=== PATIENT | female | born 1950 | race Caucasian/White ===

== ENCOUNTER 2017-12-31 04:56 | Inpatient (IN) | payer OTHER ==
[2017-11-26 10:14] VITALS: BMI 33.0
--- NOTE | 2017-11-26 10:46 | PAT Medication Instructions ---
Service Date Nov 26, 2017. Current Home Medication List Albuterol Hfa (Ventolin Hfa), 2-4 PUFFS INH Q6H PRN for SOB/Wheezing Aspirin (Aspirin Ec), 81 MG PO QAM Cholecalciferol (Vitamin D3), 1 CAP PO 3XWK Ezetimibe (Zetia), 10 MG PO DAILYBD Fluticasone Propionate (Flovent Hfa), 1 PUFFS INH BID Furosemide (Lasix), 20 MG PO QD PRN for fluid build up Loratadine (Loratadine), 1 TAB PO QAM Metformin Hcl (Glucophage), 850 MG PO BID Polyethylene Glycol 3350 (Miralax), 17 GM PO QAM Red Yeast Rice Extract (Gnp Red Yeast Rice), 600 MG PO TIDM Medication Instructions For Your Scheduled Surgery - Hold the following medications 2 weeks prior to surgery: Red Yeast Rice Extract (Gnp Red Yeast Rice), 600 MG PO TIDM - Hold the following medications 24 hours prior to surgery: Ezetimibe (Zetia), 10 MG PO DAILYBD - Hold the following medications the morning of surgery: Cholecalciferol (Vitamin D3), 1 CAP PO 3XWK Furosemide (Lasix), 20 MG PO QD PRN for fluid build up Loratadine (Loratadine), 1 TAB PO QAM Metformin Hcl (Glucophage), 850 MG PO BID Polyethylene Glycol 3350 (Miralax), 17 GM PO QAM - Take the following medications the morning of surgery with a sip of water: Albuterol Hfa (Ventolin Hfa), 2-4 PUFFS INH Q6H PRN for SOB/Wheezing (if needed , and bring it with you to the hospital) Aspirin (Aspirin Ec), 81 MG PO QAM Fluticasone Propionate (Flovent Hfa), 1 PUFFS INH BID - Take the following medications as scheduled the night before surgery: Albuterol Hfa (Ventolin Hfa), 2-4 PUFFS INH Q6H PRN for SOB/Wheezing (if needed) Fluticasone Propionate (Flovent Hfa), 1 PUFFS INH BID Metformin Hcl (Glucophage), 850 MG PO BID If you have any questions please call us at [phone] or [phone] or [phone]
[2017-11-26 11:21] LABS: BASO % 0.3 %; BASO ABS # 0.01 K/uL (0-0.2); EOS % 1.8 %; EOS ABS # 0.07 K/uL (0-0.5); IG# 0.01 K/uL (0.00-0.02); LYMPH % 21.1 %; LYMPH ABS # 0.83 K/uL (1.2-3.4); MEAN CELL VOLUME 89.3 fL (80-100); MEAN CORPUSCULAR HEMOGLOBIN 29.8 pg (25-34); MEAN CORPUSCULAR HGB CONC 33.3 g/dl (32-36); MEAN PLATELET VOLUME 8.3 fL (7.4-10.4); MONO % 14.5 %; MONO ABS # 0.57 K/uL (0.11-0.59); NEUT ABS # 2.45 K/uL (1.4-6.5); PLATELET COUNT 281 K/uL (130-400); RED CELL DISTRIBUTION WIDTH SD 42.1 fL (36.4-46.3); WHITE BLOOD COUNT 3.94 K/uL (4.8-10.8)
[2017-11-26 11:32] LABS: PTT PATIENT 27.8 SECONDS (21.0-31.0)
[2017-11-26 11:58] LABS: HEMOGLOBIN A1C 5.9 % (4.5-5.6)
[2017-11-26 12:24] LABS: CALCIUM 9.1 mg/dl (8.5-10.1); CREATININE 0.89 mg/dl (0.60-1.20); POTASSIUM 4.6 mmol/L (3.5-5.1)
--- NOTE | 2017-12-27 18:59 | HISTORY & PHYSICAL EXAMINATION ---
DATE OF ADMISSION: 12/31/2017 CHIEF COMPLAINT: Bilateral knee pain. HISTORY OF PRESENT ILLNESS: This is a 67-year-old female who presents for surgical treatment of her right knee. She has a fairly long history of bilateral knee pain and discomfort. The right side is a little bit worse than the left. She has kind of put the surgery off for quite some time. She has had injections provided by my partner, Dr. Atkinson, which provided very temporary relief. This has become less successful over time. She describes global pain in her knees. The more she walks, the more it hurts. By the end of the day she is limping quite a bit. She would like to proceed with surgical treatment. PAST MEDICAL HISTORY: 1. Elevated cholesterol. 2. Sleep apnea. 3. COPD/emphysema. 4. Prediabetes, on metformin. 5. Obesity with BMI of 34. PAST SURGICAL HISTORY: Include 1. Hysterectomy. 2. Cholecystectomy. ALLERGIES: IBUPROFEN WHICH CAUSES A RASH. MEDICATIONS: Current medications include: 1. Metformin twice a day. 2. Red yeast 3 times a day. 3. Baby aspirin 81 mg. 4. Zetia. 5. Claritin. 6. Vitamin D. 7. Flovent twice a day. SOCIAL HISTORY: A 67-year-old female. She quit smoking in 2002. No recent alcohol intake. FAMILY HISTORY: Negative for diabetes, heart disease, or blood clots. REVIEW OF SYSTEMS: Negative for her neurologic problems, vascular problems, bleeding disorders. She does have diabetes but very well controlled. Hemoglobin A1c of 5.9. PHYSICAL EXAMINATION: GENERAL: Exam reveals a healthy and pleasant middle-aged female, looks to be in pretty good health. HEENT: Benign. NECK: Supple. No lymphadenopathy. LUNGS: Clear to auscultation. CARDIOVASCULAR: Heart has regular rate and rhythm. GASTROINTESTINAL: Abdomen is soft, nontender, nondistended. EXTREMITIES: Grossly neurovascularly intact except as follows: Examination of both knees reveals patient ambulates independently. Examination of the right knee reveals slight varus alignment. She has bony hypertrophy medially. She is tender over the medial joint line. Small knee effusion. Range of motion 5-125. No instability. X-RAYS: X-ray of the right knee revealed advanced right knee DJD. She has complete loss of her medial joint space, osteophytes of the medial femoral condyle and medial tibial plateau. ASSESSMENT: A 67-year-old female with bilateral knee degenerative joint disease, right side a bit worse than the left. She has failed conservative treatment and would like to have her right knee replaced. PLAN: We will take her to the operating room and do right total knee replacement. The risks and benefits of this procedure were explained to the patient including but not limited to DVT, PE, , infection, neurological injury, vascular injury, bleeding, bone pain, abnormal range of motion, stiffness, failure to relieve symptoms, incomplete relief of symptoms, need for further surgery in the future, fracture, leg length inequality, nerve palsy, etc. The patient understands and desires to proceed. Informed consent was obtained. We did talk about holding her metformin in the morning of surgery. She is debating whether to go to rehab or home with the [facility] home health. We will see how she does in the hospital.
[~2017-12-31] VITALS: Ht 166.4 cm; Wt 93.3 kg
[2017-12-31] VITALS (10 sets, daily range): BP systolic 97–133; BP diastolic 59–78; PULSE 62–77; TEMP 36.1–36.8; O2SAT 94–99; Ht 166.4 cm; Wt 93.3 kg
[~2017-12-31 04:56] MED LIST: ASPI81TA28 PO; CHOL2000 PO; EZET10TA63 PO; FLVHFA110 INH; FURO-85 PO; LORA10CA10 PO; METF-383 PO; POLY335019 PO; RED1CAP PO; VNTHFA/IN INH
[2017-12-31] MEDS ORDERED: METOCLOPRAMIDE HCL 10 MG TAB PO SCH (06:00)
[2017-12-31] MEDS ORDERED: FAMOTIDINE 20 MG TAB PO SCH (06:00)
[2017-12-31] MEDS ORDERED: BUPIVACAINE LIPOSOME 266 MG, BUPIVACAINE/EPINEPHRINE INJ 50 ML, SODIUM CHLORIDE 0.9% PF... INFIL SCH ×3 (06:00)
[2017-12-31] MEDS ORDERED: TRANEXAMIC ACID INJ 1,000 MG x 1 Bag Intra-Op IV SCH ×2 (06:00)
[2017-12-31] MEDS ORDERED: ACETAMINOPHEN 500 MG TAB PO SCH (06:00)
[2017-12-31] MEDS ORDERED: GABAPENTIN 300 MG CAP PO SCH (06:00)
[2017-12-31] MEDS ORDERED: LACTATED RINGER'S 1000ML 500 ML IV SCH (06:00)
[2017-12-31] MEDS ORDERED: LACTATED RINGER'S 1000ML 1,000 ML IV SCH (06:00)
[2017-12-31] MEDS ORDERED: LACTATED RINGER'S 1000ML IV SCH (06:00)
[2017-12-31] MEDS ORDERED: BUPIVACAINE 0.25% 30 ML VIAL ONE ×2 (06:23→06:31)
[2017-12-31] MEDS ORDERED: BUPIVACAINE 0.5 % 5 MG/1 ML PF 10ML VIAL ONE (06:23)
[2017-12-31] MEDS ORDERED: SODIUM CHLORIDE 0.9% PF 50 ML VIAL ONE (06:30)
[2017-12-31] MEDS ORDERED: BUPIVACAINE LIPOSOME 1/3% 266 MG/20 ML VIAL INFIL ONE (06:30)
[2017-12-31] MEDS ORDERED: BACITRACIN 50000 UNIT VIAL ONE (06:30)
[2017-12-31] MEDS ORDERED: FENTANYL CITRATE INJ 50 MCG/1 ML 2 ML VIAL ONE (06:30)
[2017-12-31] MEDS ORDERED: MIDAZOLAM HCL 1 MG/ML 2ML VIAL ONE (06:30)
[2017-12-31] MEDS ORDERED: EpINEphrine INJ 1MG/ML AMP 1 MG/ML AMP ONE (06:31)
[2017-12-31] MEDS ORDERED: LIDOCAINE HCL 2% 2 ML VIAL (20MG/ML) ONE (06:33)
[2017-12-31] MEDS ORDERED: PROPOFOL IV EMULSION 10 MG/ML 20 ML VIAL IV ONE (06:34)
[2017-12-31] MEDS ORDERED: ONDANSETRON INJ 2 MG/ML 2 ML VIAL ONE (06:34)
--- NOTE | 2017-12-31 06:47 | History & Physical Bridge Note ---
H&P Re-Evaluation Bridge Note: I have examined the patient, reviewed the History & Physical and in the interval since the performance of the History & Physical I have noted the following changes of clinical significance: No changes noted
[2017-12-31] MEDS ORDERED: CEFAZOLIN SOD 2000MG/15 ML IV PUSH IV ONE (06:48)
[2017-12-31] MEDS ORDERED: PHENYLEPHRINE 100MCG/ML 5ML SYR IV PRN (07:15)
[2017-12-31] MEDS ORDERED: EpHEDrine SULFATE INJ 50 MG/ML AMP IV PRN (07:15)
[2017-12-31] MEDS ORDERED: HYDROmorphone INJ 2 MG/ML SYR/VIAL IV PRN (07:15)
[2017-12-31] MEDS ORDERED: ONDANSETRON INJ 2 MG/ML 2 ML VIAL IV PRN ×2 (07:15→08:30)
[2017-12-31] MEDS ORDERED: ATROPINE SULFATE 0.1 MG/ML 5ML SYR IV PRN (07:15)
[2017-12-31] MEDS ORDERED: EpHEDrine SULFATE INJ 50 MG/ML AMP ONE (07:29)
[2017-12-31] MEDS ORDERED: SODIUM CHLORIDE 0.9% INJ 10 ML VIAL ONE (07:29)
[2017-12-31] MEDS ORDERED: CEFAZOLIN IV 2,000 MG in DEXTROSE 5% 50ML 50 ML IV SCH (08:30)
[2017-12-31] MEDS ORDERED: ZOLPIDEM TARTRATE 5 MG TAB PO PRN (08:30)
[2017-12-31] MEDS ORDERED: GLUCOSE 40% GEL 15 GM TUBE PO PRN (08:30)
[2017-12-31] MEDS ORDERED: GLUCAGON FOR INJ 1 MG VIAL SQ PRN (08:30)
[2017-12-31] MEDS ORDERED: ALBUTEROL HFA 8 GM INHALER INH PRN (08:30)
[2017-12-31] MEDS ORDERED: GLUCOSE 10 TABS/TUBE PO PRN (08:30)
[2017-12-31] MEDS ORDERED: ALUMINUM/MAGNESIUM/SIMETH (MAALOX MAX) 30 ML UDC PO PRN (08:30)
[2017-12-31] MEDS ORDERED: MAGNESIUM HYDROXIDE SUSP 30 ML UDC PO PRN (08:30)
[2017-12-31] MEDS ORDERED: DEXTROSE 50% 50 ML SYR IV PRN (08:30)
[2017-12-31] MEDS ORDERED: SOD PHOSPHATE/SOD BIPHOSPHATE ENEMA 132 ML BTL PR PRN (08:30)
[2017-12-31] MEDS ORDERED: METOCLOPRAMIDE HCL INJ 5 MG/ML 2 ML VIAL IV PRN (08:30)
[2017-12-31] MEDS ORDERED: FUROSEMIDE 20 MG TAB PO PRN (08:30)
[2017-12-31] MEDS ORDERED: SILVER SULFADIAZINE 1% CR 50 GM JAR EXT PRN (08:30)
--- NOTE | 2017-12-31 08:30 | [facility] Post Operative Brief Note ---
Immediate Operative Summary Operative Date Dec 31, 2017. Pre-Operative Diagnosis Advanced Right Knee Degenerative Joint Disease Post-Operative Diagnosis Advanced Right Knee Degenerative Joint Disease Procedure(s) Performed Right Total Knee Arthroplasty Surgeon Dr. Pool Air Quality Instrument Specialist Surgeon(s) MIKE Weeks Estimated Blood Loss 50 ml Findings Consistent with Post-Op Diagnosis Fluids (cc crystalloids) 1200 cc Specimens A. Right Knee Bone and Tissue Drains None Anesthesia Type MAC Spinal Regional Complication(s) none Disposition Accompanied Pt To Recover: no Disposition: Recovery Room / PACU
--- NOTE | 2017-12-31 09:00 | DIAGNOSTIC IMAGING REPORT ---
R KNEE 1 OR 2 VIEWS ROUTINE CLINICAL HISTORY: AP/LATERAL IN PACU RIGHT KNEE knee replacement COMPARISON: None. DISCUSSION: Anatomic alignment status post total right knee arthroplasty. Good contact between prosthetic and underlying bone. Surgical drains are in position. Expected soft tissue postoperative change. IMPRESSION: Anatomic alignment posttotal right knee arthroplasty. The above report was generated using voice recognition software. It may contain grammatical, syntax or spelling errors. Electronically signed by: Jhonatan Rutherford M.D. 12/31/2017 8:59 AM Dictated Date/Time: 12/31/2017 8:58 AM
--- NOTE | 2017-12-31 09:08 | Anesthesiology Progress Note ---
Anesthesia Post Op Note Date & Time Dec 31, 2017 at 09:08 Vital Signs Pain Intensity: 0 Vital Signs Past 12 Hours Date Time Temp Pulse Resp B/P (MAP) Pulse Ox O2 Delivery O2 Flow Rate FiO2 12/31/17 09:00 70 12 117/57 100 Nasal Cannula 2 12/31/17 08:50 71 13 103/57 100 Oxymask 10 12/31/17 08:40 70 18 111/56 100 Oxymask 10 12/31/17 08:34 37.0 76 10 108/56 96 Oxymask 10 12/31/17 05:36 36.1 62 16 133/66 Room Air Notes Mental Status: alert / awake / arousable, participated in evaluation Pt Amnestic to Procedure: Yes Nausea / Vomiting: adequately controlled Pain: adequately controlled Airway Patency, RR, SpO2: stable & adequate BP & HR: stable & adequate Hydration State: stable & adequate Anesthetic Complications: no major complications apparent
[2017-12-31] MEDS ORDERED: HYDROmorphone INJ 0.5 MG/0.5 ML SYR IV PRN (10:45)
--- NOTE | 2017-12-31 10:55 | OPERATIVE REPORT ---
DATE OF OPERATION: 12/31/2017 SURGEON: Arnold Pool MD ICE PULLER: MIKE Woodward PREOPERATIVE DIAGNOSIS: Right knee degenerative joint disease. POSTOPERATIVE DIAGNOSIS: Right knee degenerative joint disease. PROCEDURE PERFORMED: Right cemented posterior stabilized total knee arthroplasty. COMPLICATIONS: None. ESTIMATED BLOOD LOSS: 50 mL. FLUID REPLACEMENT: 1200 mL crystalloid fluid replacement. TOURNIQUET TIME: 51 minutes at 300 mmHg. ANESTHESIA: Spinal with adductor canal block. DRAINS: None. SPECIMENS: Right knee sent for pathology. OPERATIVE INDICATIONS: The patient is a 67-year-old female with a very long history of bilateral knee pain and discomfort, right side greater than left. The patient has been through extensive conservative treatment without adequate relief. X-rays showed bilateral knee DJD. She elected to proceed with total knee arthroplasty on the right side. OPERATIVE FINDINGS: Revealed advanced right knee DJD. She had pretty extensive grade 4 changes of the medial femoral condyle, medial tibial plateau, and the patellofemoral compartment. The lateral compartment was pretty well preserved. She has a large knee joint effusion. Moderate-sized Marin cyst OPERATIVE IMPLANTS: Consist of 1. Biomet Vanguard size 65 right posterior bifemoral component. 2. Biomet size 71 tibial tray. 3. A 12 mm posterior stabilized polyethylene insert. 4. A 31 x 8 all poly patella. OPERATIVE PROCEDURE: The patient was taken to the operating room, identified, and placed on the operating table in supine position. All contact areas were appropriately padded. IV antibiotics followed by anesthesia team. A spinal anesthetic and adductor canal block had been provided in the holding area. Pritchard catheter was placed in sterile fashion. Right thigh tourniquet was then placed, and the right lower extremity was then prepped and draped in usual sterile fashion. The right leg was on the exsanguinated Esmarch. Tourniquet was placed at 300 mmHg. An anterior approach of the right knee was then performed through a longitudinal incision centered over the patella. Sharp dissection was carried through the subcutaneous tissues down to the level of the extensor mechanism. A medial .parapatellar arthrotomy incision was made. Some subperiosteal dissection was carried out medially. The fat pad was resected from beneath the patellar tendon. Lateral patellofemoral ligament was released. Patella was everted. Knee was flexed. The osteophytes were taken off the distal femur. The ACL and PCL were then released from the distal femur. The tibia subluxated anteriorly. The external tibial alignment jig was then placed in the anterior face of the tibia and adjusted 14 mm medially. Proximal tibial cut was made to remove about 2 mm of bone from the most deficient aspect of the medial tibial plateau. Some osteophytes were taken off medial and posteromedially. Tibia was sized to a size 71. Attention was then drawn to the femur. The distal femur was entered with a sharp drill bit. Intramedullary canal was suctioned. A right 5 degree valgus cutting guide was placed. Distal femoral cutting block was pinned in place. Distal femoral cut was made to take an additional 3 mm bone off distal femur. The femur was then sized to a size 65. We did downsize this slightly. The AP cutting block was pinned parallel to the epicondylar axis, which was 3 degrees of external rotation. The anterior cut, anterior chamfer, posterior cut, posterior chamfer cuts were made. Box cutting guide was placed and adjusted slightly. Another box cut was made. The knee was flexed. The remnants of the medial and lateral menisci were excised. The osteophytes were taken off the posterior aspect of the femur. Trial femoral component was placed. Tibial tray was pinned in maximum external rotation, and the drill and stem punch were used to create defect in the proximal tibia for the tibial tray. The knee was then trialed, and a 12 mm insert fit most appropriately. Attention was then drawn to the patella. The patella was cleaned of all soft tissues. Patellar thickness measured 23 mm, cut down to 13. It was sized to a size 31 patella. Locals were drilled for 31 patella. Lateral osteophyte was removed. Patellar button was placed. Knee was taken through range of motion. The patella tracked nicely with no thumbs test. Attention was then drawn toward placement of permanent components. All trial components were removed. A bone plug was placed in the distal femur to limit blood loss. A double batch of Palacos G cement was mixed. A right size 65 posterior stabilized femoral component, size 71 tibial tray, a 12 mm posterior stabilized polyethylene insert, and a 31 x 8 all poly patella were then cemented in place. Knee was brought into full extension until cement hardened. A final cement check was then performed. Pericapsular tissues were injected with a total of 100 mL of a combination of 20 mL of Exparel, 30 mL of normal saline, 50 mL of 0.25% Marcaine with epinephrine. The patient did receive 1 g of tranexamic acid. The tourniquet was then let down for final tourniquet time of 51 minutes. Hemostasis was assured using electrocautery. The wound was once again irrigated. The extensor mechanism was then closed with a combination of #1 PDS suture and #1 Vicryl suture in a [id number] fashion. The extensor mechanism was checked and found to be intact. The subcutaneous tissue was then closed with 2 Dexon suture in buried interrupted fashion. Skin was closed with skin pranav. Leg was then cleaned and dried, and a sterile dressing of Xeroform, 4x4's, sterile cast padding, and Iblly bandage were applied. The patient was then transferred to the recovery room in stable condition. The patient tolerated the procedure well with no complication. All needle and sponge counts were correct at the end of the operation. I attest to the content of the Intraoperative Record and any orders documented therein. Any exception s are noted below.
[2017-12-31] MEDS: FLUTICASONE HFA 110MCG INHALER INH SCH ×2 (11:39→20:58)
[2017-12-31] MEDS: SODIUM CHLORIDE 0.9% 1000ML 1,000 ML IV SCH ×2 (11:42→21:33)
[2017-12-31] MEDS: FERROUS GLUCONATE 324 MG TAB PO SCH ×2 (11:42→17:52)
[2017-12-31] MEDS: KETOROLAC TROMETHAMINE 15 MG/ML VIAL IV. SCH ×2 (11:43→17:54)
[2017-12-31] MEDS ORDERED: RED YEAST RICE EXTRACT PO SCH (12:00)
[2017-12-31] MEDS: INSULIN HUMAN REGULAR SC SCH ×3 (12:33→20:57)
[2017-12-31] MEDS: TRAMADOL HCL 50 MG TAB PO PRN (13:11)
--- NOTE | 2017-12-31 13:15 | PROGRESS NOTE ---
DATE: 12/31/2017 SUBJECTIVE: A 67-year-old white female postop from right knee replacement. She is doing well. Just starting to get some pain in her leg. No chest pain or shortness of breath. Not feeling dizzy or lightheaded. OBJECTIVE: VITAL SIGNS: Temperature is 36.5. Vital signs stable. PHYSICAL EXAMINATION: GENERAL: Reveals a healthy, pleasant middle-aged female. She is sitting up in bed, looks pretty comfortable. LUNGS: Clear to auscultation. HEART: Regular rate and rhythm. ABDOMEN: Soft, nontender, nondistended. EXTREMITIES: Grossly neurovascularly intact except as follows: Examination of the right leg reveals the leg to be well aligned. Dressing is clean, dry, and intact. She can dorsiflex and plantarflex her foot appropriately. She is neurologically intact. X-RAYS: X-ray of the right knee from recovery room reviewed. Shows a right cemented posterior stabilized total knee arthroplasty. Components looked to be in good position. No signs of problems. ASSESSMENT: A 67-year-old white female postop from right knee replacement, doing well. Pain is controlled. She is neurologically intact. PLAN: 1. DVT prophylaxis including thigh-high TEDs, SCDs, and aspirin twice a day. 2. PT/OT. Weight bear as tolerated. Right total knee protocol. 3. Pain control, doing well with current pain regimen. 4. IV antibiotics x24 hours. 5. Disposition: She is planning to be discharged to home with some home health once adequately recovered.
[2017-12-31] MEDS: ACETAMINOPHEN 500 MG TAB PO SCH ×2 (14:02→21:33)
[2017-12-31] MEDS: CEFAZOLIN IV 2,000 MG in SYRINGE 0 ML IV SCH ×2 (14:02→22:54)
[2017-12-31] MEDS ORDERED: TRANEXAMIC ACID INJ 1,000 MG in SODIUM CHLORIDE 0.9% 100ML 100 ML IV SCH (14:30)
[2017-12-31] MEDS: EZETIMIBE 10MG TAB PO SCH (17:52)
[2017-12-31] MEDS: ASPIRIN 81 MG ECTAB PO SCH (20:58)
[2017-12-31] MEDS: SENNA 8.6 MG TAB PO SCH (20:58)
[2017-12-31] MEDS: DOCUSATE SODIUM 100 MG CAP PO SCH (20:58)
[2018-01-01] MEDS: KETOROLAC TROMETHAMINE 15 MG/ML VIAL IV. SCH ×4 (00:14→18:10)
[2018-01-01 00:15] VITALS: O2SAT 96
[2018-01-01 03:15] VITALS: BP 113/58; PULSE 76; TEMP 36.8; O2SAT 93
[2018-01-01] MEDS ORDERED: NURSING VERBAL MED ORDER ONE (05:15)
[2018-01-01] MEDS: ACETAMINOPHEN 500 MG TAB PO SCH ×3 (05:48→21:46)
[2018-01-01 06:14] LABS: HEMATOCRIT 29.7 % (37-47); HEMOGLOBIN 9.6 g/dL (12.0-16.0); MEAN CELL VOLUME 90.3 fL (80-100); MEAN CORPUSCULAR HEMOGLOBIN 29.2 pg (25-34); MEAN CORPUSCULAR HGB CONC 32.3 g/dl (32-36); PLATELET COUNT 269 K/uL (130-400); RED CELL DISTRIBUTION WIDTH CV 13.1 % (11.5-14.5); RED CELL DISTRIBUTION WIDTH SD 43.1 fL (36.4-46.3)
[2018-01-01 06:46] LABS: CALCIUM 8.6 mg/dl (8.5-10.1); CREATININE 1.1 mg/dl (0.60-1.20); POTASSIUM 4.4 mmol/L (3.5-5.1)
[2018-01-01 07:16] VITALS: BP 106/67; PULSE 72; TEMP 36.8; O2SAT 95
[2018-01-01] MEDS: SODIUM CHLORIDE 0.9% 1000ML 1,000 ML IV SCH (07:28)
[2018-01-01] MEDS: INSULIN HUMAN REGULAR SC SCH ×4 (08:38→21:00)
[2018-01-01] MEDS ORDERED: CHOLECALCIFEROL 1000 INTER.UNIT TAB PO SCH (09:00)
[2018-01-01] MEDS: FLUTICASONE HFA 110MCG INHALER INH SCH ×2 (09:45→21:02)
[2018-01-01] MEDS: DOCUSATE SODIUM 100 MG CAP PO SCH ×2 (09:45→21:03)
[2018-01-01] MEDS: FERROUS GLUCONATE 324 MG TAB PO SCH ×3 (09:45→18:10)
[2018-01-01] MEDS: ASPIRIN 81 MG ECTAB PO SCH ×2 (09:45→21:03)
[2018-01-01] MEDS: PANTOprazole SOD 40 MG TAB PO SCH (09:46)
[2018-01-01] MEDS: POLYETHYLENE (MIRALAX) 17 GM PACK PO SCH (09:47)
[2018-01-01] MEDS: LORATADINE 10 MG TAB PO SCH (10:21)
[2018-01-01] MEDS: MULTIVITAMIN TAB PO SCH (10:21)
[2018-01-01 11:04] VITALS: BP 110/64; PULSE 79; TEMP 36.4; O2SAT 95
[2018-01-01 15:03] VITALS: BP 124/63; PULSE 81; TEMP 37.3; O2SAT 93
[2018-01-01] MEDS: TRAMADOL HCL 50 MG TAB PO PRN (16:01)
[2018-01-01] MEDS: EZETIMIBE 10MG TAB PO SCH (18:10)
--- NOTE | 2018-01-01 19:32 | PROGRESS NOTE ---
DATE: 01/01/2018 SUBJECTIVE: A 67-year-old white female postop day 1 from a right knee replacement. Pretty painful day today with therapy and all. Denies any chest pain or shortness of breath. Not feeling dizzy or lightheaded. OBJECTIVE: VITAL SIGNS: Temperature is 37.3. Vital signs stable. GENERAL: A pleasant, middle-aged female. She was walking around the hallways when I visited her this afternoon and looked to be doing quite well. Looks reasonably comfortable. EXTREMITIES: Examination of the right leg reveals dressing to be clean, dry and intact. She can dorsiflex and plantarflex her foot appropriately. NEUROLOGICAL: She is neurologically intact. LABORATORY DATA: Hemoglobin 9.6. Hematocrit 29.7. Electrolytes are stable. ASSESSMENT: A 67-year-old white female postop day 1 from right knee replacement, doing pretty well; pretty painful, but managing okay with the pain meds. PLAN: 1. DVT prophylaxis including thigh-high TEDs, SCDs, and aspirin twice a day. 2. PT/OT. Weight bear as tolerated. Right total knee protocol. 3. Pain control, doing well with current pain regimen. 4. Disposition: She is hoping to be discharged home with some home health once adequately recovered.
[2018-01-01] MEDS: SENNA 8.6 MG TAB PO SCH (21:03)
[2018-01-01] MEDS ORDERED: ACET-24 PO (21:49)
[2018-01-01] MEDS ORDERED: ULT50X PO (21:49)
[2018-01-01] MEDS ORDERED: FRRG PO (21:49)
[2018-01-01] MEDS ORDERED: ASPI-320 PO (21:49)
--- NOTE | 2018-01-01 21:51 | Discharge Instructions ---
Discharge Instructions Date of Service Jan 01, 2018. Admission Reason for Admission: Right Knee Degenerative Joint Disease Discharge Discharge Diagnosis / Problem: Right Knee Replacement Discharge Goals Goal(s): Decrease discomfort, Improve function, Increase independence, Improve disease control, Therapeutic intervention Activity Recommendations Activity Limitations: per Instructions/Follow-up section Weightbearing Status: Right weightbearing . Instructions / Follow-Up Instructions / Follow-Up ACTIVITY RECOMMENDATIONS: Physical Therapy: * You will go to physical therapy three times each week for four to six weeks after your surgery in order to regain your knee range of motion and to retrain your knee to work properly. * It is just as important to make sure you are getting your knee perfectly straight as it is to regain your knee bend. * Taking a pain pill an hour before therapy can help you have a more productive and comfortable therapy session. Home Exercise: * You were shown a series of exercises (heel props, heel slides, etc.) in the hospital. Do these exercises three to four times each day including the exercises you were shown in physical therapy. Walking: * Get up and walk several times each day. For the first four weeks, try not to stand or walk for more than one hour at a time. If you do stand or walk for more than one hour, you will not hurt anything, but your knee and leg will likely swell. * As you feel comfortable, you may change from the walker or crutches to a cane and then to independent walking. MEDICATIONS: New Medicine: * You will likely be taking one or more of these medications: 1. Tramadol - A quick and shorter-acting pain medication. Take one to two tablets every four to six hours to lessen your pain. 2. Iron Sulfate - Take two times each day for the month after surgery to help you replace the blood lost during surgery. 3. Aspirin - Thins your blood to lessen the chance of forming a blood clot. * The most common side effects of pain medicine and iron are nausea and constipation. If nausea or constipation is too much of a problem or if you have any questions about your new medicines or doses, call [facility] at [phone]. We will try to help you manage these issues. VERY IMPORTANT TO READ AND REVIEW" Pain: * The immediate post-operative period after knee replacement surgery is often quite painful. * You are given a prescription for pain medicine. You should take it, as directed, when you need it, especially before physical therapy and before going to bed. Pain that interferes with sleep is very common and can last several months. * You will likely need pain medicine for the first four to six weeks. It will not stop all of the pain. The pain will lessen and as you feel better, you may change to milder pain medicine such as Tylenol. * The most common side effects of pain medicine are nausea and constipation, so don't take more than you need. SPECIAL CARE INSTRUCTIONS: TEDs/Elastic Stockings: * The white elastic stockings help limit swelling and prevent blood clots from forming in your legs. The more you wear them, the more they work. * Wear them for six weeks after knee replacement surgery and four weeks after partial knee replacement. Prevention of Infection: * Take antibiotics one hour before any dental cleaning, dental work, urological procedure, gastrointestinal procedure or any invasive surgery in order to prevent your new joint from getting infected. * You may get the antibiotics from the doctor performing the procedure or you may call our office at before and we will call in a prescription to the pharmacy of your choice. Things to Watch For: * Drainage from the incision site that occurs more than one week after your surgery. * Severely increased knee/leg pain or swelling. * Increased redness at the incision site. * Fever above 102 degrees Fahrenheit. * Unusual chest pain or shortness of breath. * Unusual pain or burning with urination. Call [facility] at with any of the above problems or if you have any questions about your medicines or recovery. FOLLOW UP VISIT: Make an appointment to see your doctor for approximately two weeks after surgery for a progress check and staple removal by calling the office at . Current Hospital Diet Patient's current hospital diet: Diabetes Type 2 Diet Discharge Diet Recommended Diet: Diabetes Type 2 Diet Procedures Procedures Performed: Right Total Knee Arthroplasty Pending Studies Studies pending at discharge: no Laboratory Results Hemoglobin A1c Test 11/26/17 10:59 Range/Units Estimated Average Glucose 123 mg/dl Hemoglobin A1c 5.9 H 4.5-5.6 % Medical Emergencies . Who to Call and When: Medical Emergencies: If at any time you feel your situation is an emergency, please call 911 immediately. . Non-Emergent Contact Non-Emergency issues call your: Surgeon . "Provider Documentation" section prepared by Arnold Pool. .
[2018-01-02 00:05] VITALS: BP 120/73; PULSE 83; TEMP 37.2; O2SAT 95
[2018-01-02 00:15] VITALS: O2SAT 95
[2018-01-02] MEDS: KETOROLAC TROMETHAMINE 15 MG/ML VIAL IV. SCH ×2 (00:29→06:34)
[2018-01-02] MEDS: ACETAMINOPHEN 500 MG TAB PO SCH (06:33)
[2018-01-02 06:41] VITALS: BP 133/81; PULSE 74; TEMP 36.6; O2SAT 93
[2018-01-02] MEDS: INSULIN HUMAN REGULAR SC SCH ×2 (07:18→12:00)
[2018-01-02] MEDS: FLUTICASONE HFA 110MCG INHALER INH SCH (07:19)
[2018-01-02] MEDS: ASPIRIN 81 MG ECTAB PO SCH (07:19)
[2018-01-02] MEDS: PANTOprazole SOD 40 MG TAB PO SCH (07:20)
[2018-01-02] MEDS: MULTIVITAMIN TAB PO SCH (07:20)
[2018-01-02] MEDS: LORATADINE 10 MG TAB PO SCH (07:20)
[2018-01-02] MEDS: POLYETHYLENE (MIRALAX) 17 GM PACK PO SCH (07:20)
[2018-01-02] MEDS: DOCUSATE SODIUM 100 MG CAP PO SCH (07:20)
[2018-01-02] MEDS: FERROUS GLUCONATE 324 MG TAB PO SCH ×2 (07:20→12:09)
--- NOTE | 2018-01-02 08:07 | PROGRESS NOTE ---
DATE: 01/02/2018 SUBJECTIVE: A 67-year-old white female postop day 2 from right knee replacement. She is doing a little bit better this morning. No chest pain or shortness of breath, just knee pain. OBJECTIVE: VITAL SIGNS: Temperature 36.6. Vital signs stable. PHYSICAL EXAMINATION: GENERAL: A pleasant middle-aged elderly female lying in bed pretty comfortable. She looks comfortable. EXTREMITIES: Examination of the right leg reveals the dressing to be clean, dry and intact. Fairly mild swelling. Calf is soft and supple. She is neurologically intact. ASSESSMENT: A 67-year-old white female postop day 2 from right knee replacement, doing pretty well. She is anemic, but without symptoms. Pain seems to be reasonably well controlled. She is neurologically intact. PLAN: 1. DVT prophylaxis including thigh-high TEDs, SCDs, and aspirin twice. 2. PT/OT. Weight bear as tolerated. Right total knee protocol. 3. Pain control, doing pretty well with current pain regimen. 4. Disposition: Plan to discharge to home with some home health later today.
[2018-01-02 08:08] VITALS: BP 133/81; PULSE 74; TEMP 36.6; O2SAT 93
[2018-01-02] MEDS: TRAMADOL HCL 50 MG TAB PO PRN (13:09)
== END 2018-01-02 13:45 | disposition home health service (06) | DRG 470 ==
LOC: C.ACU 04:56 → C.3E 06:30 → ENRESERV 09:10
PROVIDERS: ADMIT Orthopaedic Surgery Sports Medicine; ATTEND Orthopaedic Surgery Sports Medicine
PROC: 0SRC0J9 Replacement of Right Knee Joint with Synthetic Substitute, Cemented, Open Approach (ICD-10-PCS; principal; 2017-12-31 07:00)
DX: M17.0 Bilateral primary osteoarthritis of knee (principal); M71.21 Synovial cyst of popliteal space [Baker], right knee; M25.461 Effusion, right knee; M21.161 Varus deformity, not elsewhere classified, right knee; D64.9 Anemia, unspecified; J43.9 Emphysema, unspecified; R73.03 Prediabetes; E78.00 Pure hypercholesterolemia, unspecified; G47.30 Sleep apnea, unspecified; E66.9 Obesity, unspecified; Z68.33 Body mass index [BMI] 33.0-33.9, adult; Z87.891 Personal history of nicotine dependence; Z79.51 Long term (current) use of inhaled steroids; Z79.82 Long term (current) use of aspirin; Z79.84 Long term (current) use of oral hypoglycemic drugs; Z79.899 Other long term (current) drug therapy; Z88.6 Allergy status to analgesic agent

== ENCOUNTER → 2018-05-02 | Outpatient (CLI) | payer OTHER ==
[~2018-05-02] MED LIST changes: +ACET-24 PO; +ASPI-320 PO; -ASPI81TA28 PO; +FRRG PO; +ULT50X PO
[2018-05-02 13:35] LABS: BASO % 0.2 %; BASO ABS # 0.01 K/uL (0-0.2); EOS % 2.2 %; HEMATOCRIT 39.2 % (37-47); HEMOGLOBIN 12.6 g/dL (12.0-16.0); LYMPH % 26.5 %; LYMPH ABS # 1.22 K/uL (1.2-3.4); MEAN CELL VOLUME 91.6 fL (80-100); MEAN CORPUSCULAR HEMOGLOBIN 29.4 pg (25-34); MEAN CORPUSCULAR HGB CONC 32.1 g/dl (32-36); MONO % 8.9 %; MONO ABS # 0.41 K/uL (0.11-0.59); NEUT % 62.2 %; NEUT ABS # 2.87 K/uL (1.4-6.5); PLATELET COUNT 321 K/uL (130-400); RED CELL DISTRIBUTION WIDTH CV 13.6 % (11.5-14.5); RED CELL DISTRIBUTION WIDTH SD 45.1 fL (36.4-46.3); WHITE BLOOD COUNT 4.61 K/uL (4.8-10.8)
[2018-05-02 13:41] LABS: INR 0.9 (0.9-1.1); PTT PATIENT 26.2 SECONDS (21.0-31.0)
[2018-05-02 13:52] LABS: BLOOD UREA NITROGEN 15 mg/dl (7-18); CALCIUM 9.4 mg/dl (8.5-10.1); CARBON DIOXIDE 29 mmol/L (21-32); CREATININE 1.01 mg/dl (0.60-1.20); GLUCOSE 99 mg/dl (70-99); POTASSIUM 4.6 mmol/L (3.5-5.1); SODIUM 140 mmol/L (136-145)
== END | disposition home or self-care (01) ==
LOC: C.LABMFLN 08:54
PROVIDERS: ATTEND Orthopaedic Surgery Sports Medicine
DX: Z01.812 Encounter for preprocedural laboratory examination (principal)